=== PATIENT | female | born 1980 | race Caucasian/White ===

== ENCOUNTER → 2020-11-03 14:23 | Outpatient (CLI) | payer OTHER, SELFPAY ==
[2020-11-03] MEDS: COVID-19 VACC(MODERNA-1)/PF 100 MCG/0.5 ML VIAL IM (14:26)
== END ==
PROVIDERS: Visit Provider Internal Medicine
DX: Z23 Encounter for immunization (principal)
CPT/HCPCS: 0011A; 91301

== ENCOUNTER → 2020-11-30 14:20 | Outpatient (CLI) | payer OTHER, SELFPAY ==
[2020-11-30] MEDS: COVID-19 VACC #2, MRNA(MOD) 100 MCG/0.5 ML VIAL IM (14:23)
== END ==
PROVIDERS: Visit Provider Internal Medicine
DX: Z23 Encounter for immunization (principal)
CPT/HCPCS: 0012A; 91301

== ENCOUNTER → 2021-02-09 16:21 | Outpatient (CLI) | payer OTHER, SELFPAY ==
--- NOTE | 2021-02-09 16:23 | DI.MG.S_ITS ---
BILATERAL DIGITAL SCREENING MAMMOGRAM 3D/2D WITH CAD: 02/09/2021 CLINICAL: Routine screening. Baseline exam. No prior exams were available for comparison. The tissue of both breasts is heterogeneously dense. This may lower the sensitivity of mammography. Current study was also evaluated with a Computer Aided Detection (CAD) system. There is an oval focal asymmetry with an obscured margin in the right breast at 11 o'clock middle depth. There is an oval focal asymmetry with an obscured margin and punctate calcifications in the left breast at 6 o'clock middle depth. There also is an oval focal asymmetry with an obscured margin in the left breast at 12 o'clock anterior depth. No other significant masses or calcifications are seen in either breast. IMPRESSION: INCOMPLETE: NEEDS ADDITIONAL IMAGING EVALUATION The oval focal asymmetry in the right breast at 11 o'clock middle depth resembles a cyst and is indeterminate. The oval focal asymmetry in the left breast at 6 o'clock middle depth resembles a cyst or fibroadenoma and is indeterminate. The oval focal asymmetry in the left breast at 12 o'clock anterior depth resembles a cyst and is indeterminate. Additional views with possible ultrasound are recommended. This exam was interpreted at Station ID: [id number]. NOTE: For mammograms, a report in lay terms will be sent to the patient. Approximately 15% of breast malignancies will not be visualized mammographically. In the management of a palpable breast mass, a negative mammogram must not discourage biopsy of a clinically suspicious lesion. Electronically Signed By: Fernando Chris M.D. [facility] [place]/:02/09/2021 17:51:55 letter sent: Additional Imaging Needed ACR BI-RADS Category 0: Incomplete [id number]
== END ==
PROVIDERS: PCP Student in an Organized Health Care Education/Training Program; Referring Provider Student in an Organized Health Care Education/Training Program; Visit Provider Student in an Organized Health Care Education/Training Program
DX: Z12.31 Encounter for screening mammogram for malignant neoplasm of breast (principal)
CPT/HCPCS: 77063; 77067

== ENCOUNTER → 2021-03-11 08:43 | Outpatient (CLI) | payer OTHER, SELFPAY ==
--- NOTE | 2021-03-11 | DI.MG.S_ITS ---
BILATERAL DIGITAL DIAGNOSTIC MAMMOGRAM 3D/2D WITH ADDITIONAL VIEWS: 03/11/2021 CLINICAL: Additional evaluation requested from prior study. Comparison is made to exam dated: 02/09/2021 [facility]. The tissue of both breasts is heterogeneously dense. This may lower the sensitivity of mammography. There is a possible 1.5 cm oval focal asymmetry with an obscured margin in the right breast at 6 o'clock middle depth. This is not seen in additional views. There is an 8 mm oval focal asymmetry with an obscured margin and punctate calcifications in the left breast at 6 o'clock middle depth. This is seen in additional views. There also is a 1.2 cm oval low density focal asymmetry with a circumscribed margin in the left breast at 12 o'clock anterior depth. This is seen in additional views. No other significant masses or calcifications are seen in either breast. IMPRESSION: INCOMPLETE: NEEDS ADDITIONAL IMAGING EVALUATION The possible 1.5 cm oval focal asymmetry in the right breast at 6 o'clock middle depth remains indeterminate. An ultrasound is recommended. The 8 mm oval focal asymmetry in the left breast at 6 o'clock middle depth resembles a cyst or a fibroadenoma but remains indeterminate. An ultrasound is recommended. The 1.2 cm oval low density focal asymmetry in the left breast at 12 o'clock anterior depth most likely is a cyst but remains indeterminate. An ultrasound is recommended. Bilateral breast ultrasound is recommended for full evaluation of these areas. This was performed immediately following this exam. This exam was interpreted at Station ID: [id number]. NOTE: For mammograms, a report in lay terms will be sent to the patient. Approximately 15% of breast malignancies will not be visualized mammographically. In the management of a palpable breast mass, a negative mammogram must not discourage biopsy of a clinically suspicious lesion. Electronically Signed By: Fany johnson/:03/11/2021 09:45:05 ACR BI-RADS Category 0: Incomplete 3340F
--- NOTE | 2021-03-11 08:45 | DI.US.S_ITS ---
LIMITED ULTRASOUND OF RIGHT BREAST: 03/11/2021 CLINICAL: Patient returns today to evaluate a focal asymmetry in the right breast. Comparison is made to exams dated: 03/11/2021 mammogram and 02/09/2021 mammogram - [facility]. Color flow and real-time ultrasound of the right breast lower outer quadrant were performed. Rasmussen scale images of the real-time examination were reviewed. There is a cluster of 5 mm oval cysts in the right breast inferior lateral quadrant posterior depth. These possibly correlate with mammography findings. Color flow imaging demonstrates that there is no vascularity present. There also is a 1 cm x 0.5 cm x 0.4 cm cluster of irregular cysts in the right breast at 9 o'clock posterior depth 8 cm from the nipple. This probably correlates with mammography findings. Color flow imaging demonstrates that there is no vascularity present. Additionally, there is a 0.4 cm oval cyst in the right breast at 7 o'clock anterior depth. This correlates as an incidental finding. IMPRESSION: PROBABLY BENIGN The cysts and cyst clusters in the lower outer quadrant right breast may correspond to the mammographic asymmetry, have a differential diagnosis of complicated cysts, less likely apocrine metaplasia, and are probably benign. A follow-up right ultrasound in 6 months is recommended to demonstrate stability of these areas . Findings and recommendations were conveyed to the patient at time of exam. This exam was interpreted at Station ID: [id number]. Electronically Signed By: Fany johnson/:03/11/2021 11:38:40 letter sent: Followup Recommended Ultrasound BI-RADS: 3 Probably benign
--- NOTE | 2021-03-11 08:45 | DI.US.S_ITS ---
ULTRASOUND OF LEFT BREAST AND AXILLA: 03/11/2021 CLINICAL: Patient returns today to evaluate two focal asymmetries in the left breast. Comparison is made to exams dated: 03/11/2021 mammogram and 02/09/2021 mammogram - [facility]. Color flow and real-time ultrasound of the left breast axilla were performed. Rasmussen scale images of the real-time examination were reviewed. There is a 1 cm x 0.9 cm x 0.6 cm oval mass with a microlobulated and angular margin in the left breast at 5 o'clock middle depth 7 cm from the nipple. This oval mass is hypoechoic with some posterior acoustic shadowing. This correlates with mammography findings. There are calcifications within the mass. Color flow imaging demonstrates that there is no vascularity present. There also is a 1.2 cm x 0.9 cm x 0.9 cm oval cyst with debris in the left breast at 12 o'clock anterior depth 1 cm from the nipple. This oval cyst with debris displays an abrupt boundary. This correlates with mammography findings. Color flow imaging demonstrates that there is an adjacent vascularity. No significant abnormalities were seen sonographically in the left axilla. IMPRESSION: SUSPICIOUS OF MALIGNANCY The 1 cm oval mass in the left breast at 5 o'clock middle depth resembles a fibroadenoma but remains suspicious of malignancy. An ultrasound guided biopsy is recommended. The 1.2 cm oval cyst with debris in the left breast at 12 o'clock anterior depth most likely is a complicated cyst and is probably benign. A follow-up ultrasound in 6 months is recommended. Findings and recommendations were discussed with the patient by Dr. Siddhartha Butler at time of exam. This exam was interpreted at Station ID: [id number]. Electronically Signed By: Fany johnson/:03/11/2021 11:29:53 letter sent: Biopsy Required Ultrasound BI-RADS: 4 Suspicious for malignancy
== END ==
PROVIDERS: PCP Student in an Organized Health Care Education/Training Program; Referring Provider Student in an Organized Health Care Education/Training Program; Visit Provider Student in an Organized Health Care Education/Training Program
DX: R92.8 Other abnormal and inconclusive findings on diagnostic imaging of breast (principal); N64.89 Other specified disorders of breast; N63.23 Unspecified lump in the left breast, lower outer quadrant; N60.02 Solitary cyst of left breast; N60.01 Solitary cyst of right breast
CPT/HCPCS: 76642; 77066; G0279

== ENCOUNTER → 2021-03-29 13:09 | Outpatient (CLI) | payer OTHER, SELFPAY ==
--- NOTE | 2021-03-29 | DI.MG.S_ITS ---
UNILATERAL LEFT DIGITAL DIAGNOSTIC MAMMOGRAM POST-NEEDLE BIOPSY: 03/29/2021 CLINICAL: Left breast mass. Comparison is made to exams dated: 03/11/2021 mammogram, 02/09/2021 mammogram, and 03/29/2021 ultrasound biopsy - [facility]. The tissue of left breast is heterogeneously dense. This may lower the sensitivity of mammography. There is a marker clip in the appropriate position in the left breast at 5 o'clock middle depth. This marker clip placement is at the biopsy site. IMPRESSION: POST PROCEDURE MAMMOGRAM FOR MARKER PLACEMENT There was a successful marker clip placement in the left breast middle depth. This exam was interpreted at Station ID: [id number]. NOTE: For mammograms, a report in lay terms will be sent to the patient. Approximately 15% of breast malignancies will not be visualized mammographically. In the management of a palpable breast mass, a negative mammogram must not discourage biopsy of a clinically suspicious lesion. Electronically Signed By: Rd Delgado M.D. fbarturo/:04/01/2021 07:56:22 ACR BI-RADS Category Post-procedure mammogram for marker placement
--- NOTE | 2021-03-29 | DI.US.S_ITS ---
ULTRASOUND GUIDED BIOPSY LEFT BREAST USING VACUUM DEVICE WITH MARKING DEVICE INSERTED AND POST MAMMOGRAPHIC IMAGIN03/29/2021 CLINICAL: Left breast mass. PATIENT CONSENT: Risks (minor bleeding, infection, vasovagal reaction and repeat procedure), benefits and alternatives were explained to the patient and written informed consent was obtained. Correlation is made to exams dated: 03/29/2021 mammogram, 03/11/2021 ultrasound, 03/11/2021 mammogram, and 02/09/2021 mammogram - [facility]. An ultrasound guided biopsy using real-time ultrasound was performed for the 1 cm lobulated solid mass located in the left breast at 5 o'clock middle depth 7 cm from the nipple. This was described on the previous ultrasound report. The skin was prepped in the usual manner. Local anesthetic was administered to the access site. A small incision was made in the breast. The abnormality was approached from the lateral aspect. A 13 gauge biopsy needle was placed adjacent to the abnormality under ultrasound guidance. Once the needle was documented to be in the correct location, nine specimens were obtained using the Mammotome biopsy system. A vision clip was inserted into the biopsy cavity. A skin closure strip and a sterile dressing were applied to the access site. Post procedure mammographic imaging demonstrates the location device at the targeted area and partial removal of the abnormality. The specimens were sent to the laboratory for pathological analysis. IMPRESSION: ULTRASOUND GUIDED BIOPSY BENIGN Ultrasound guided biopsy of the 1 cm solid mass in the left breast at 5 o'clock middle depth 7 cm from the nipple was successful with no apparent post procedure complications. Pathology indicates benign fragments of nodular sclerosis with associated fibrosis and possible early dystrophic microcalcifications. Background with focal usual ductal hyperplasia and focal apocrine metaplasia. Negative for atypia, carcinoma in situ, and malignancy. Pathology results are concordant with imaging findings. Future imaging is recommended as follows: 09/11/2021 bilateral ultrasound for follow up of additional findings seen on diagnostic ultrasound from 03/11/2021. This exam was interpreted at Station ID: [id number]. Rd lewis,ar/:04/05/2021 09:49:18
--- NOTE | 2021-03-29 | PATH_ITS ---
[facility] Accession Number: [id number] . 01 Material submitted: . breast - LEFT BREAST MASS 5:00 7CMFN . 01 Diagnosis: A. Left Breast Mass, 5 o'clock, 7 cm From The Nipple, Biopsy: Fragments of nodular sclerosis with associated fibrosis and possible early dystrophic microcalcifications. Background with focal usual ductal hyperplasia and focal apocrine metaplasia. Negative for atypia, carcinoma in situ, and malignancy. . COMMENT: The findings may represent a sclerosed fibroadenoma; however, a focus of sclerosed fat necrosis or pseudoangiomatous hyperplasia is also on the differential diagnosis. Deeper levels are examined. Clinical and radiographic correlation is necessary. [facility] 03/31/2021 1253 Local . 01 Electronically signed: . Patricia Whitney MD, Pathologist NPI- [id number] . 01 Gross description: . Received one formalin-filled container, labeled with the patient's name and labeled left breast 5 o'clock 7 cm FN. The specimen is received with a plastic filter in container, sample loose in container and consists of multiple fragments of yellow-chi, cylindrical-shaped tissue which range in size from less than 0.1 cm to 0.8 x 0.3 x 0.2 cm. Contents of container are filtered, wrapped, and entirely submitted in one cassette. Possible collection date and time per requisition: 03/29/21 at 1428. Total fixation time: Approximately 13 hours. ([id number]) /FRR 03/30/2021 0225 Local . 01 Pathologist provided ICD-10: N63.20 . 01 CPT . 595308 Performed at: 01 [facility] [address] [place] [address], [place], [place] [id number] MD Eduardo Yuan MD Phone: [phone]
== END ==
PROVIDERS: PCP Student in an Organized Health Care Education/Training Program; Referring Provider Student in an Organized Health Care Education/Training Program; Visit Provider Student in an Organized Health Care Education/Training Program
DX: N63.23 Unspecified lump in the left breast, lower outer quadrant (principal); N60.32 Fibrosclerosis of left breast; N60.82 Other benign mammary dysplasias of left breast
CPT/HCPCS: 19083; 77065

== ENCOUNTER → 2021-04-11 13:30 | Outpatient (CLI) | payer OTHER, SELFPAY ==
[2021-04-11 17:10] LABS: COVID19 -Nasal RAPID Negative (Negative)
== END ==
PROVIDERS: PCP Student in an Organized Health Care Education/Training Program; Visit Provider Physician Assistant
DX: Z01.812 Encounter for preprocedural laboratory examination (principal); Z20.822 Contact with and (suspected) exposure to COVID-19
CPT/HCPCS: 87635

== ENCOUNTER → 2021-04-13 07:31 | Day surgery (SDC) | payer OTHER, SELFPAY ==
[2021-04-13] VITALS (7 sets, daily range): BP systolic 102–121; BP diastolic 60–77; PULSE 60–83; RESP 16–20; TEMP 35.8–36.6; O2SAT 95–97; BMI 34.3
--- NOTE | 2021-04-13 | PATH_ITS ---
[facility] Accession Number: [id number] . 01 Material submitted: . rectum - RECTAL POLYP . 02 Diagnosis: Rectum, Polyp, Biopsy: Hyperplastic polyp. [facility] 04/15/2021 1138 Local . 02 Electronically signed: . Nissa Cortez MD, Pathologist NPI- [id number] . 01 Gross description: . RECTAL POLYP: Received in formalin are 3 fragment(s) of chi, soft tissue measuring 0.3 x 0.3 x 0.3 cm to 0.2 x 0.1 x 0.1 cm submitted entirely in 1 cassette(s) /GINNA 04/14/2021 0639 Local . 02 Pathologist provided ICD-10: K62.1 . 02 CPT . 449994 Performed at: 01 [facility] [address] [id number] MD Eduardo Yuan MD Phone: [phone] Performed at: 02 [facility] [address] [place], [place] [id number] MD Nissa Cortez MD Phone: [phone]
--- NOTE | 2021-04-13 08:10 | PM.HP.1 ---
History of Present Illness History of Present Illness Date Patient Seen: 04/13/21 Time Patient Seen: 08:10 Chief complaint: SDC Narrative: Patient is a very pleasant 40-year-old female who presented for colonoscopy. She was seen February 24, 2021 for rectal bleeding and family history of colon polyps. She denies any changes to her symptoms or history since that time. Patient History Medical History (Updated 04/13/21 @ 08:08 by Chen Vences RN) Nicotine dependence Surgical History (Updated 04/13/21 @ 08:11 by Chen Vences RN) History of appendectomy Meds Home Medications and Allergies Home Medications Medication Instructions Recorded Confirmed Type bupropion HCl 150 mg PO DAILY 04/13/21 04/13/21 History cholecalciferol (vitamin D3) 1,000 unit PO DAILY 04/13/21 04/13/21 History [Vitamin D3] Allergies Allergy/AdvReac Type Severity Reaction Status Date / Time No Known Drug Allergies Allergy Verified 04/13/21 08:11 Review of Systems Review of Systems ROS: Yes All systems reviewed with the patient and are negative except as otherwise documented Exam Const General: cooperative, healthy appearing, comfortable, well developed, well groomed and No acute distress HENMT Head: normal to inspection, normocephalic and atraumatic Resp Effort & Inspection: normal respiratory effort and able to speak in complete sentences Auscultation: clear to auscultation bilaterally Cardio Rate: regular rate Rhythm: regular rhythm Heart Sounds: S1 normal and S2 normal GI Palpation: soft Auscultation: normal bowel sounds Extrem Right lower extremity: no edema Left lower extremity: no edema Assessment & Plan Assessment & Plan narrative: Colonoscopy today, further recommendations to follow
[2021-04-13] MEDS: SODIUM CHLORIDE 0.9% 1,000 ML 70 ML IV (08:20)
[2021-04-13] MEDS: MIDAZOLAM 5 MG/5 ML VIAL IV (08:33)
[2021-04-13] MEDS: fentaNYL 250 MCG/5 ML INJ IV (08:33)
--- NOTE | 2021-04-13 08:58 | P.OP.ENDO_ITS ---
Operative Date/Time/Diagnoses Date of procedure: 04/13/21 Time of procedure: 08:32 Procedure Notes Procedure in detail: Surgeon: Maria Mcdaniel DO Procedure: Colonoscopy with polypectomy Preoperative diagnosis: 1. Rectal bleeding 2. Family history colon polyps Postoperative diagnosis: 1. 3 mm rectal polyp 2. Grade 2 internal hemorrhoids 3. Otherwise unremarkable colonoscopy Medications: Conscious sedation using 5 mg IV of Midazolam and 175 mcg IV of Fentanyl Preanesthesia Assessment An H and P was performed/updated and the Px?s ASA class is 2. The procedure was discussed in detail with the patient. The potential risks and complications i ncluding infection, bleeding, missed lesions, perforation, need for surgery in case of perforation, prolonged hospital stay, and were explained. A brief question and answer period was allotted and once all questions were answered, informed consent was obtained. The patient was brought back to the procedure room and placed on standard monitoring. The patient?s vital signs were monitored continuously throughout the entire procedure. Prior to starting, a timeout was performed to confirm the patient?s identity, allergies, medications, and procedure. Procedure in detail The patient was placed in left lateral decubitus position and once adequate sedation was obtained a MITRA was performed. The digital rectal examination did not reveal any palpable lesions. The tip of the colonoscope was placed in the anal canal and advanced without difficulty all the way to the cecum which was identified by the appendiceal orifice and the ileocecal valve. Careful examination of all whitaker of the colon was performed with irrigation of any residual stool. Rectal polyp 3 mm removed with Jumbo forceps. Grade 2 internal hemorrhoids noted on retroflexion. The patient tolerated the procedure well and will be brought back to the recovery area to be discharged once criteria are met. The prep was judged to be good/excellent and adequate to identify polyps less than 5 mm. The withdrawal time was 7min. The total physician intraservice time was 19min. Complications There were no complications and estimated blood loss was minimal. Recommendations: Resume previous diet Continue outPx medications Follow up pathology results Repeat colonoscopy after pathology results are reviewed Office follow up as needed An emergency contact number was given to the patient for any complications related to the procedure
== END | disposition home or self-care (01) ==
PROVIDERS: PCP Student in an Organized Health Care Education/Training Program; Referring Provider Student in an Organized Health Care Education/Training Program; Visit Provider Student in an Organized Health Care Education/Training Program
PROC: 0DJD8ZZ Inspection of Lower Intestinal Tract, Via Natural or Artificial Opening Endoscopic (ICD-10-PCS; CPT 45378; principal; 2021-04-13 08:30)
DX: K62.5 Hemorrhage of anus and rectum (principal); K64.1 Second degree hemorrhoids; K62.1 Rectal polyp
CPT/HCPCS: 45380; J2250; J3010